=== PATIENT | female | born 1980 | race Two or more races ===

== ENCOUNTER 2016-05-26 16:11 | Emergency (ER) | payer SELFPAY ==
[2016-05-26 16:17] VITALS: PULSE 80; TEMP 97.6; BMI 21.7
--- NOTE | 2016-05-26 16:43 | EDPRACDOC ---
- General Information Chief Complaint: Vaginal Bleeding Stated Complaint: VAGINAL BLEEDING Time Seen by Provider: 05/26/16 16:25 Information Source: Patient Mode of Arrival: Car Home Medications: Home Medications Oxycodone Immediate Release [Oxycodone Immediate Release (OxyIR)] 5 mg PO Q4H PRN #30 tab 03/05/16 Medroxyprogesterone Acetate [Provera] 10 mg PO DAILY #7 tablet 05/26/16 Allergies/Adverse Reactions: Allergies Allergy/AdvReac Type Severity Reaction Status Date / Time No Known Allergies Allergy Verified 05/26/16 16:17 - History of Present Illness Onset: 1 MONTH HPI: PT C/O VAGINAL BLEEDING FOR 1 MONTH AND LOWER ABD/PELVIC PAIN AND PRESSURE. PT STATES SHE HAS SEEN PCP AND WAS PUT ON CONTROL PILLS BUT HAS NOT HAD ANY CHANGE IN SYMPTOMS. NO N/V URINARY SYMPTOMS OR VAGINAL DISCHARGE NOTED. PT STATES AT HER LAST PCP VISIT SHE WAS ANEMIC AND HAS BEEN HAVING SOME MILD FATIGUE RECENTLY. Description: Reports: Spontaneous (CONTINUOUS) Location: Reports: Internal Vagina Control Method: Reports: BCPs Blood Type: Unknown Pain Severity: Mild Vaginal Bleeding Description: Reports: Bright Red, Dark, Clotted Associated Signs & Symptoms: Reports: Abdominal Pain (SUPRAPUBIC/PELVIC) ED Past Medical History - History Reviewed Yes Nurses notes reviewed and agree except as marked Travel Outside of [place] in the Last 3 Months?: No No Past Medical History: Yes Patient has no past medical history - Patient Medical History Psychological History: Reports: Anxiety. Denies: Depression, Substance Use Disorder Systemic History: Denies: Cancer, Anemia, Lupus - Family Medical History Reports: Cancer (AUNT WITH BREAST). Denies: Hypertension, Diabetes, Stroke, Cardiac Disorders - Social Medical History Smoking Status: Never smoker Social History: Denies: Amphetamine Use, Barbiturate Use, Benzodiazipine Use, Cocaine Use, Heroin Use, Marijuana Use, Methadone Use, MDMA (Ecstasy) Use, Substance Use Disorder ETOH: None Substance Abuse: None Lives With: Other Lives In: Home EDM Review of Systems - Review of Systems ROS Negative Except as Marked: Yes All systems reviewed and were negative except as marked Constitutional: Fatigue. negative: Chills, Fever, Loss of Appetite, Weakness Eyes: No Symptoms Reported. negative: Redness, Blurred Vision, Double Vision, Discharge, Pain, Light Sensitive, Photophobia Ears: No Symptoms Reported. negative: Pain, Hearing Loss, Drainage, Ear Pulling Throat: No Symptoms Reported. negative: Pain, Swelling Nose: No Symptoms Reported. negative: Congestion, Bleeding, Discharge, Injection, Swelling, Deformity, Ecchymosis, Tender, Abrasion, Laceration Mouth: No Symptoms Reported. negative: Pain, Drooling Respiratory: No Symptoms Reported. negative: Cough, Brassy Cough, Barky Cough, Shortness of Breath, Wheezing, Hemoptysis Cardiovascular: No Symptoms Reported. negative: Chest Pain, Palpitations, Syncope, Edema, Orthopnea, PND, Skin Mottling, Cyanosis Gastrointestinal: Pain. negative: Constipation, Diarrhea, Formula Intolerance, Melena, Nausea, Vomiting Genitourinary: Vaginal Bleeding. negative: Bleeding, Dysuria, Discharge, Frequency, Hematuria, , Testicular Pain Neurological: No Symptoms Reported. negative: Headache, Dizziness, Seizure, Numbness, Weakness, Speech Difficulty, Gait Difficulty Musculoskeletal: No Symptoms Reported. negative: Neck, Chestwall, Ribs, Back, Shoulder, Arm, Elbow, Forearm, Wrist, Hand, Pelvis, Hip, Femur, Knee, Leg, Ankle , Foot Integumentary: No Symptoms Reported. negative: Itching, Rash, Bruising, Wound Allergic/Immunologic: No Symptoms Reported. negative: Hives, Itching Hematologic: No Symptoms Reported. negative: Lymphadenopathy, Easy Bruising, Easy Bleeding Endocrine: No Symptoms Reported. negative: Weight Gain, Weight Loss Psychiatric: No Symptoms Reported. negative: Anxiety, Depression, Hallucinations, Insomnia, Suicidal - Physical Exam Constitutional: Alert (Awake), No apparent distress Oriented to: Time, Person, Place Last recorded Vital Signs: Last Vital Signs Temp 97.6 F 05/26/16 16:15 Pulse 80 05/26/16 16:15 Resp 18 05/26/16 16:15 BP 123/58 L 05/26/16 16:15 Pulse Ox 100 05/26/16 16:15 Oxygen Pulse Oxygen Saturation 100 O2 Device Room Air Oxygen Flow Rate Fraction of Inspired Oxygen ( FIO2) - HEENT Head: Normal ( normocephalic) Eye Exam: Normal (PERRL, EOMI, Sclera white) Oropharynx: Normal (Pharynx:Moist without exudate,Gums-no swelling) Tympanic Membrane: Normal ENT EAC: Normal TMJ: Normal Nose: No Symptoms Reported (septum midline) Neck: Normal (FROM, trachea at midline) - Respiratory/Cardiovascular Respiratory: Normal - CTA (BBS clear to auscultation without adventitious sounds ) Cardiovascular: Normal (RRR without murmur, gallop or rub) - GI Auscultation: Normal (NABS) Palpation: Normal (Soft,No rebound or guarding, non distended) Tenderness: Non tender Joyce's Sign: Negative - Musculoskeletal Back: Normal (Non-Tender) Extremities: Normal (Normal tone, Pulses 2+ No cyanosis or edema, FROM) - Integumentary Skin: Normal, Warm, Dry Lymphatics: Normal (no adenopathy) - Neurologic Memory Impaired: Normal Motor Function: Normal (Normal tone, Pulses 2+ No cyanosis or edema, FROM) Cranial Nerve: Normal (CN II-X11 intact sensation, strength 5/5) Cerebellar: Normal Mood Description: Normal Perception: Normal ED Vaginal Exam External: Blood Vaginal Exam: Normal Vaginal Lesions: None Vaginal Discharge: None Cervix: Blood, Other (IUD STRING SHOWING PROTRUDING FROM CERVIX) Uterus: Normal size Adnexa: Normal - Differential Diagnosis Dysmenorrhea, Menorrhagia, Menometrorrhagia, Other (UTERINE FIBROIDS) - Results 05/26/16 16:50 05/26/16 16:50 - Diagnostic Imaging US PELVIS Image interpreted by: Radiologist EXAM: TRANSABDOMINAL AND TRANSVAGINAL ULTRASOUND OF PELVIS TECHNIQUE: Both transabdominal and transvaginal ultrasound examinations of the pelvis were performed. Transabdominal technique was performed for global imaging of the pelvis including uterus, ovaries, adnexal regions, and pelvic cul-de-sac. It was necessary to proceed with endovaginal exam following the transabdominal exam to visualize the ovaries an IUD. COMPARISON: None FINDINGS: Uterus Measurements: 8.2 x 4.0 x 5.3 cm.. No fibroids or other mass visualized. Endometrium Thickness: 4 mm.. An IUD is noted in place. Right ovary Measurements: 2.5 x 1.4 x 1.6 cm.. Normal appearance/no adnexal mass. Left ovary Measurements: 3.6 x 2.1 x 2.1 cm.. 2.4 cm cyst is noted within the left ovary. Other findings No abnormal free fluid. IMPRESSION: IUD in place. Left ovarian cyst. No other focal abnormality is noted. Decision Time to Discharge: 19:38 - Departure Disposition: Home Condition: Stable Final Diagnosis: DUB (dysfunctional uterine bleeding), Left ovarian cyst Instructions: Dysfunctional Uterine Bleeding (ED), Ovarian Cyst (ED) Education/Counseling Given To: Patient Education/Counseling Given Regarding: Diagnosis, Treatment, Prognosis, Follow Up Referrals: Carmella Agarwal DO [Staff Physician] - One Week Prescriptions: Medroxyprogesterone Acetate [Provera] 10 mg PO DAILY #7 tablet Additional Instructions: RETURN FOR WORSE OR DIFFERENT SYMPTOMS.
[2016-05-26 17:02] LABS: AUTOMATED BASOPHIL 1.2 % (0-2); AUTOMATED EOSINOPHIL 3.8 % (0-5); AUTOMATED LYMPH 41.8 % (17-44); AUTOMATED MONOCYTE 7.4 % (3-10); AUTOMATED NEUTROPHIL 45.8 % (45-76); MPV 7.9 fL (7.4-10.4)
[2016-05-26 17:12] LABS: BLOOD UREA NITROGEN 8 MG/DL (7-17); CALCIUM 8.7 MG/DL (8.4-10.2); CALCULATED OSMOLALITY 271 MOs/Kg (270-290); CHLORIDE 104 mEq/L (98-107); GLUCOSE 68 MG/DL (70-99); SODIUM LEVEL 143 mEq/L (137-146)
[2016-05-26] MEDS ORDERED: OXYCODONE HCL 5 MG TABLET PO ONE (17:18)
--- NOTE | 2016-05-26 19:05 | DIRPT ---
CLINICAL DATA: Vaginal bleeding for 1 month EXAM: TRANSABDOMINAL AND TRANSVAGINAL ULTRASOUND OF PELVIS TECHNIQUE: Both transabdominal and transvaginal ultrasound examinations of the pelvis were performed. Transabdominal technique was performed for global imaging of the pelvis including uterus, ovaries, adnexal regions, and pelvic cul-de-sac. It was necessary to proceed with endovaginal exam following the transabdominal exam to visualize the ovaries an IUD. COMPARISON: None FINDINGS: Uterus Measurements: 8.2 x 4.0 x 5.3 cm.. No fibroids or other mass visualized. Endometrium Thickness: 4 mm.. An IUD is noted in place. Right ovary Measurements: 2.5 x 1.4 x 1.6 cm.. Normal appearance/no adnexal mass. Left ovary Measurements: 3.6 x 2.1 x 2.1 cm.. 2.4 cm cyst is noted within the left ovary. Other findings No abnormal free fluid. IMPRESSION: IUD in place. Left ovarian cyst. No other focal abnormality is noted. Electronically Signed By: Thai Villalba M.D. On: 05/26/2016 19:03
[2016-05-26 19:55] VITALS: BP 120/61
[2016-05-29 21:36] LABS: CHLAMY BY NUCLEIC ACID AMP Negative (Negative)
[2016-05-30 06:49] LABS: GC BY NUCLEIC ACID AMP Negative (Negative)
== END 2016-05-26 19:57 | disposition home or self-care (01) ==
LOC: EDMC 16:11
DX: N93.8 Other specified abnormal uterine and vaginal bleeding (principal); N83.202 Unspecified ovarian cyst, left side
CPT/HCPCS: 36415; 76830; 76856; 80053; 85025; 86850; 86900; 86901; 87210; 87220; 87491; 87591; 99283; J3490